=== PATIENT | male | born 1950 | race Caucasian/White ===

== ENCOUNTER → 2016-08-02 | Outpatient (CLI) | payer MEDICARE, OTHER ==
[~2016-08-02] MED LIST: ALPR0.255 PO; ASPI81 PO; ATOR40TA28 PO; CHOL500051 PO; CIPR-278 PO; CLOP75 PO; CLOT15CR62 TP; FOLI1 PO; FURO40 PO; GLIP5 PO; IBUP-1547 PO; INSLAN SQ; INSU100C3 SQ; LORA10TA7 PO; METO25 PO; NITR.4 SL; NIZO215C TP; OMEP20 PO; PROM25 PO; SANTO TP; TERB250 PO
[2016-08-02 15:23] VITALS: BP 147/83
== END | disposition home or self-care (01) ==
LOC: HBOWC 08:01
PROVIDERS: ATTEND Emergency Medicine
DX: E11.621 Type 2 diabetes mellitus with foot ulcer (principal); L97.521 Non-pressure chronic ulcer of other part of left foot limited to breakdown of skin; E11.51 Type 2 diabetes mellitus with diabetic peripheral angiopathy without gangrene; E11.22 Type 2 diabetes mellitus with diabetic chronic kidney disease; I12.9 Hypertensive chronic kidney disease with stage 1 through stage 4 chronic kidney disease, or unspecified chronic kidney disease; N18.9 Chronic kidney disease, unspecified; F41.9 Anxiety disorder, unspecified; L84 Corns and callosities
CPT/HCPCS: 87070; 87205; 97597